=== PATIENT | male | born 1935 | race Caucasian/White ===

== ENCOUNTER → 2018-04-19 | Outpatient (CLI) | payer MEDICARE ==
[~2018-04-19] MED LIST: ALEN10 PO; ASPI325 PO; CEFD300 PO; HYDACE5325 PO; METO25 PO; RXHYD5325 PO
== END | disposition home or self-care (01) ==
LOC: PLD 11:42 → LAB SHORT 11:42
DX: L28.1 Prurigo nodularis (principal); L73.9 Follicular disorder, unspecified
CPT/HCPCS: 88305

== ENCOUNTER → 2018-07-05 | Outpatient (CLI) | payer MEDICARE ==
[2018-07-05 15:46] LABS: Source, Urine Clean Catch
[2018-07-05 15:57] LABS: Bacteria Not Seen /hpf; Red Blood Cells, Urine Rare /hpf (0-2); Squamous Epithelial Cells Not Seen /hpf (Few); White Blood Cells, Urine Not Seen /hpf (0-5); Yeast/Fungi Urine Not Seen /hpf
== END | disposition home or self-care (01) ==
LOC: LAB EV 15:00 → LAB SHORT 15:00
PROVIDERS: Physician Assistant
DX: R31.9 Hematuria, unspecified (principal)
CPT/HCPCS: 81015

== ENCOUNTER 2018-12-16 13:00 | Observation (INO) | payer MEDICARE ==
[~2018-12-16] VITALS: Ht 185.4 cm; Wt 89.9 kg
[2018-12-16 13:34] LABS: BASOPHILS ABSOLUTE AUTO 0.06 K/mm3 (0.00-0.23); BASOPHILS PERCENT AUTO 1 % (0-2); EOSINOPHILS ABSOLUTE AUTO 0.28 K/mm3 (0.00-0.68); EOSINOPHILS PERCENT AUTO 4 % (0-6); Hematocrit 43.8 % (37.0-53.0); Hemoglobin 13.9 g/dL (13.5-17.5); IMMATURE GRAN ABSOLUTE AUTO 0.01 K/mm3 (0.00-0.10); IMMATURE GRAN PERCENT AUTO 0 % (0-1); LYMPHOCYTES ABSOLUTE AUTO 1.82 K/mm3 (0.84-5.20); LYMPHOCYTES PERCENT AUTO 27 % (21-46); MONOCYTES ABSOLUTE AUTO 0.89 K/mm3 (0.16-1.47); MONOCYTES PERCENT AUTO 13 % (4-13); Mean Corpuscular HGB 30.1 pg (26.0-34.0); Mean Corpuscular HGB Conc 31.7 g/dL (31.5-36.5); Mean Corpuscular Volume 95 fL (80-100); Mean Platelet Volume 9.5 fL (9.1-12.4); NEUTROPHILS ABSOLUTE AUTO 3.66 K/mm3 (1.96-9.15); NEUTROPHILS PERCENT AUTO 55 % (41-73); Platelet Count 235 K/mm3 (150-400); RDW Standard Deviation 44.8 fL (35.1-46.3); Red Blood Cell Count 4.62 M/mm3 (4.30-5.90); White Blood Cell Count 6.72 K/mm3 (4.00-11.30)
[2018-12-16 13:51] LABS: Albumin, Blood 3.9 g/dL (3.4-5.0); Albumin/Globulin Ratio 1.2 (0.8-1.8); Bilirubin, Total 0.6 mg/dL (0.1-1.0); Bun/Creatinine Ratio 13.5 (12.0-20.0); Calcium, Blood 8.8 mg/dL (8.5-10.1); Creatinine, Blood 1.41 mg/dL (0.60-1.20); Globulin, Blood 3.2 g/dL (2.2-4.0); Total Protein, Blood 7.1 g/dL (6.4-8.2)
--- NOTE | 2018-12-17 01:39 | NUR ---
12/16/181999 83 Y/O MALE ADMITTED TO 301 PER STRETCHER FROM ER. PT ALERT AND ORIENTED X 3, DENIES PAIN, SOB, NAUSEA, NO NEUROLOGICAL DEFICITS NOTED.
--- NOTE | 2018-12-17 04:21 | NUR ---
SHIFT SUMMARY: 83 Y/O MALE RESTED COMFORTABLY ALL SHIFT. PT DENIES CHEST, NAUSEA, NUMBNESS OR TINGLING TO FACIAL. PT ALERT AND ORIENTED X 3. PT ABLE TO TRANSFER AND AMBULATE TO BATHROOM TO VOID WITH GAIT SLOW AND STEADY. PTS BED LOW POSITION, CALL LIGHT AT SIDE.
[2018-12-17 05:03] LABS: CHOL/HDL RATIO 2.9; Cholesterol 190 mg/dL (50-200); HDL Cholesterol 65 mg/dL (>39); LDL/HDL RATIO 1.6; Low Density Lipoprotein Chol 105 mg/dL (0-110); Triglycerides 102 mg/dL (30-160); Very Low Density Lipoprot Chol 20 mg/dL (6-32)
--- NOTE | 2018-12-17 10:22 | NUR ---
ECHOCARDIOGRAM COMPLETE
--- NOTE | 2018-12-17 14:34 | NUR ---
PATIENT TO DISCHARGE TO HOME. IV REMOVED WITH NO SS OF INFECTION NOTED. NO NEW MEDS TO EDUCATE OR TO FAX OVER. PATIENT INSTRUCTED TO FOLLOW UP WITH PCP. CAME AND PATIENT WAS ESCORTED DOWN TO CAR BY ANUP.
== END 2018-12-17 13:00 | disposition home or self-care (01) ==
LOC: ER 13:00 → MEDS 13:01
PROVIDERS: Emergency Medicine; ADMIT Internal Medicine
DX: G45.9 Transient cerebral ischemic attack, unspecified (principal); J44.9 Chronic obstructive pulmonary disease, unspecified; N18.3 Chronic kidney disease, stage 3 (moderate); Z86.79 Personal history of other diseases of the circulatory system; Z79.82 Long term (current) use of aspirin; Z91.040 Latex allergy status
CPT/HCPCS: 36415; 70450; 70551; 80053; 80061; 85025; 93005; 93010; 93306; 93880; 96372; 99285-25; G0378; J1650

== ENCOUNTER → 2020-08-06 | Outpatient (CLI) | payer MEDICARE | END | disposition home or self-care (01) | LOC: LAB 12:29 → LAB SHORT 12:29 | DX: D48.5 Neoplasm of uncertain behavior of skin (principal) | CPT/HCPCS: 88305; 88312 ==

== ENCOUNTER 2023-02-14 20:46 | Inpatient (IN) | payer MEDICARE ==
[~2023-02-14] VITALS: Ht 185.4 cm; Wt 89.6 kg
[2023-02-14 21:09] LABS: BASOPHILS ABSOLUTE AUTO 0.05 K/mm3 (0.00-0.23); BASOPHILS PERCENT AUTO 1 % (0-2); EOSINOPHILS ABSOLUTE AUTO 0.39 K/mm3 (0.00-0.68); EOSINOPHILS PERCENT AUTO 4 % (0-6); Hematocrit 38.2 % (37.0-53.0); Hemoglobin 12.3 g/dL (13.5-17.5); IMMATURE GRAN ABSOLUTE AUTO 0.02 K/mm3 (0.00-0.10); IMMATURE GRAN PERCENT AUTO 0 % (0-1); LYMPHOCYTES ABSOLUTE AUTO 2.34 K/mm3 (0.84-5.20); LYMPHOCYTES PERCENT AUTO 25 % (21-46); MONOCYTES ABSOLUTE AUTO 1.15 K/mm3 (0.16-1.47); MONOCYTES PERCENT AUTO 12 % (4-13); Mean Corpuscular HGB Conc 32.2 g/dL (31.5-36.5); Mean Corpuscular Volume 93 fL (80-100); Mean Platelet Volume 9.3 fL (9.1-12.4); NEUTROPHILS ABSOLUTE AUTO 5.41 K/mm3 (1.96-9.15); NEUTROPHILS PERCENT AUTO 58 % (41-73); Platelet Count 284 K/mm3 (150-400); RDW Coefficient Variation 13.2 % (11.7-14.2); RDW Standard Deviation 45.2 fL (35.1-46.3); White Blood Cell Count 9.36 K/mm3 (4.00-11.30)
[2023-02-14 21:27] LABS: Albumin, Blood 3.6 g/dL (3.4-5.0); Albumin/Globulin Ratio 1.1 (0.8-1.8); Bilirubin, Total 0.3 mg/dL (0.1-1.0); Bun/Creatinine Ratio 16.1 (12.0-20.0); Calcium, Blood 8.8 mg/dL (8.5-10.1); Creatinine, Blood 1.18 mg/dL (0.60-1.20); Globulin, Blood 3.4 g/dL (2.2-4.0); Potassium, Blood 4.3 mmol/L (3.5-5.5)
[2023-02-15] VITALS (23 sets, daily range): BP systolic 89–143; BP diastolic 56–90
[2023-02-15] MEDS ORDERED: ALBU90OI INH (01:27)
[2023-02-15 03:32] LABS: Source, Urine Clean Catch
[2023-02-15 03:34] LABS: Bilirubin, Urine Neg (Neg); Blood, Urine 1+ (Neg); Glucose Qualitative, Urine Neg (Neg); Ketones, Urine Neg (Neg); Leukocyte Esterase, Urine Neg (Neg); Nitrite, Urine Neg (Neg); Protein, Urine Neg (Neg); Specific Gravity, Urine 1.015 (1.003-1.022); Urobilinogen, Urine NORM (Normal)
[2023-02-15 03:52] LABS: Appearance, Urine Clear (Clear); Color, Urine Yellow (P-Yellow)
[2023-02-15 03:53] LABS: Amorphous Light (0-Heavy); Bacteria Few /hpf; Red Blood Cells, Urine 0-2 /hpf (0-2); Squamous Epithelial Cells Few /hpf (Few); White Blood Cells, Urine 0-2 /hpf (0-5)
--- NOTE | 2023-02-15 05:06 | NUR ---
ER ADMIT LATE ENTRY ER ADMIT. SURGICAL PT. ALERT AND ORIENTED X4. PT HAD 300 ML EMESIS AT 0330. NPO. PT DENIES PAIN. WHEEZING NOTED ON ASSESSMENT. NOTIFIED SEE ORDERS. PT EDUCATED ON RISK OF HAVING IGNITION SOURCES AROUNG OXYGEN. PT DECLINES HAVING IGNITION SOURCE.
[2023-02-15 05:37] LABS: Albumin, Blood 3.6 g/dL (3.4-5.0); Albumin/Globulin Ratio 1.1 (0.8-1.8); Bilirubin, Total 0.5 mg/dL (0.1-1.0); Calcium, Blood 8.8 mg/dL (8.5-10.1); Creatinine, Blood 1.12 mg/dL (0.60-1.20); Globulin, Blood 3.2 g/dL (2.2-4.0); Potassium, Blood 3.5 mmol/L (3.5-5.5); Total Protein, Blood 6.8 g/dL (6.4-8.2)
--- NOTE | 2023-02-15 11:04 | NUR ---
PT HERE FROM [facility]. Patient confirms NPO status and agrees with scheduled surgery. History, Chart, Medications and Allergies reviewed before start of procedure.Pre-Op teaching done. Pt verbalizes understanding.
--- NOTE | 2023-02-15 14:12 | NUR ---
MIDLINE INCISION APEARS TO COVERED WITH EXOFEN CDI
--- NOTE | 2023-02-15 14:25 | NUR ---
ARRIVAL TO SURGICAL UNIT VIA HOSPITAL BED, QUIET BUT ANSWERS ?'s BY NODDING HEAD OR SHAKING HEAD IN A NO FASHION. DECLINES TO OPEN EYES BUT PACU NURSE REPORTS HE OPENED THEM ONCE BY COMMAND IN PACU. ABD SOFT w/ OSTOMY TO MID ABD. MIDLINE INC UNDER UMBILICUS w/ CLEAR DRSG OVER. LUNGS CLEAR 3L NC.
--- NOTE | 2023-02-15 15:10 | NUR ---
TRANSFER NOTE POST SURGERY, PT WAS TRANSFERED TO SURGICAL FLOOR. REPORT GIVEN TO AAKASH GARLAND. PERSONAL BELONGINGS MOVED TO NEW ROOM, IS AT THE BS. PALLIATIVE CARE NOTIFIED OF THE TRANSFER FOR FURTHER CARE.
--- NOTE | 2023-02-15 15:13 | NUR ---
Spoke with Dr Almaguer, discussed case and findings. Pt resting in bed with his eyes closed and on surgical floor. Pt appears comfortable and remains with his eyes closed during brief supportive visit with spouse Meli. Brief review of plan of care. Plan: Advanced Care Planning including goals of care conversation after physician discusses findings. Palliative Care will remain available
[2023-02-16] VITALS (10 sets, daily range): BP systolic 98–146; BP diastolic 60–96
--- NOTE | 2023-02-16 05:43 | NUR ---
SHIFT SUMMARY POD1 COLECTOMY WITH STOMA CREATION. MIDLINE INCISION IS C/D/I, BRUISING BEGINNING TO APPEAR THIS AM. STOMA APPEARS FLUSH WITH SURROUNDING SKIN, NO LARGE PROTRUDING PART NOTED. OUTPUT HAS BEEN LIQUID, BROWN W/ A TINT OF MAROON, AND FOUL. MINIMAL TO NO FLATTUS NOTED. PT NOTED TO BELCH REGULARLY. MEDICATED FOR PAIN WITH IV MEDICATION. PT REPORTS FEELING PAINFUL BUT IS VERY STOIC. 1L OR LR INFUSED T/O THE NIGHT, BP NOTED TO INCREASE BUT NO URINE OUTPUT NOTED. HOSPITALIST NOTIFIED OF THIS, NO FUTHER ORDERS AT THIS TIME. BLADDER SCAN OF 214. PT REPORTS NO URGE TO VOID. PT REMAINED ON O2 T/O THE NIGHT. 1 EPISODE OF WHEEZING NOTED, THIS RESOLVED WITH BREATHING TX. O2 INCREASED FROM 3L TO 4L. VSS. PT TOLLERATING ICE CHIPS W/O N/V. PT SLEPT ON AND OFF T/O THE NIGHT. PLAN FOR DR MAURICIO TO SPEAK TO PT AND FAMILY TODAY ABOUT SURGICAL FINDINGS. NO IGNITION SOURCE NOTED
[2023-02-16 06:25] LABS: BASOPHILS ABSOLUTE AUTO 0.04 K/mm3 (0.00-0.23); BASOPHILS PERCENT AUTO 0 % (0-2); EOSINOPHILS PERCENT AUTO 0 % (0-6); Hematocrit 34.5 % (37.0-53.0); Hemoglobin 10.9 g/dL (13.5-17.5); IMMATURE GRAN ABSOLUTE AUTO 0.06 K/mm3 (0.00-0.10); IMMATURE GRAN PERCENT AUTO 0 % (0-1); LYMPHOCYTES ABSOLUTE AUTO 1.66 K/mm3 (0.84-5.20); LYMPHOCYTES PERCENT AUTO 11 % (21-46); MONOCYTES PERCENT AUTO 13 % (4-13); Mean Corpuscular HGB 30.2 pg (26.0-34.0); Mean Corpuscular HGB Conc 31.6 g/dL (31.5-36.5); Mean Corpuscular Volume 96 fL (80-100); Mean Platelet Volume 9.7 fL (9.1-12.4); NEUTROPHILS ABSOLUTE AUTO 11.03 K/mm3 (1.96-9.15); NEUTROPHILS PERCENT AUTO 75 % (41-73); Platelet Count 303 K/mm3 (150-400); RDW Coefficient Variation 13.3 % (11.7-14.2); RDW Standard Deviation 47.3 fL (35.1-46.3); Red Blood Cell Count 3.61 M/mm3 (4.30-5.90); White Blood Cell Count 14.69 K/mm3 (4.00-11.30)
[2023-02-16 06:46] LABS: Calcium, Blood 8.1 mg/dL (8.5-10.1); Creatinine, Blood 1.68 mg/dL (0.60-1.20); Potassium, Blood 5.4 mmol/L (3.5-5.5)
--- NOTE | 2023-02-16 11:05 | NUR ---
Joint visit with Dr Almaguer this AM. Pt resting in bed and denies pain unless he moves then pain is significant. Pt reports being premedicated before our arrival in order to aid with ability to get up and move. Dr Almaguer provides update of her findings during surgery and discusses prognosis. Therapeutic listening as Pt states having a good life and he will turn 88 years old soon. Pt appears some what stoic during conversation. Continued therapeutic listening as Pt reports being to his spouse Meli for 33 years. He reports spouse has some memory impairment and becomes confused during stressful situations. He reports having 2 sons that and two living sons who live in [place]. Luke Fair appear to be pretty supportive. Pt also has a daughter who lives in [place]. Dr Almaguer receives permission from Pt to contact son Marv to discuss findings and concerns. Staff will attempt to obtain Marv's phone number as Pt does not have it memorized and phone number is at home on wall above his desk. Pt agreeable for this RN to F/U later today when spouse arrives and discuss options. Spoke with Primary RN Susana, AAKASH Dias and discussed case. Plan: Discuss goals of care with Pt and family. Palliative Care will remain available
--- NOTE | 2023-02-16 12:27 | NUR ---
"Spiritual Care Visit | Palliative Care Nurse Request Pt. is awake in bed and welcomes my visit. Pt. is pleasant. This housing property manager had been notified of the Pt. learning of a potential cancer diagnosis. Facilitated a life review. Listen with interest and empathy. Pt. displayed evidence of the realistic possibility of his terminal diagnosis, and demonstrated an accepting posture. Pt. verbalized an expectation of being admitted at the hospital for several days. Established rapport, and considered matters of popeye and belief. Prayed witht Pt. Pt. verbalized gratitude for the spiritual care visit. Will remain available to the pt. and family."
--- NOTE | 2023-02-16 14:40 | NUR ---
PT EDUCATED ON RISK OF IGNITION SOURCES AND DANGER OF SMOKING WHILE USING OXYGEN. PT VERBALIZED UNDERSTANDING. PT DENIES ANY USE OF CIGARETTES
--- NOTE | 2023-02-16 14:49 | NUR ---
Called and spoke with Pt's son Marv prior to F/U visit with Pt. Offered supportive conversation and answered questions. He confirms Dr Almaguer called and discussed findings. He reports ability to come down from [place] soon and assist with care needs. Marv expresses appreciation and reports no concerns at this time. Received call from Pt's Primary RN Susana reporting spouse has arrived. Pt resting in bed with spouse Meli at bedside. Engaged in therapeutic conversation regarding goals of care. Discussed Dr Almaguer's findings with spouse. Discussed options including consulting oncology after pathology results are in, discussed option for hospice services, and option for home health then transitioning to hospice. Educated on hospice philosophy and answered questions. Offered theraputic listening. Pt's daughter calls his room phone and Pt engages in conversation on the phone. Continued conversation with spouse. Spouse verbalizes understanding. Ended visit as Pt remains on the phone. Spoke with Pt's Primary RN Susana and relayed conversation that took place. Palliative Care will remain available for therapeutic and supportive visits.
--- NOTE | 2023-02-16 16:46 | NUR ---
SUMMARY: PT IS POD1 LOOP COLOSTOMY. A/O, VSS. PAIN APPEARS TO BE WELL MANAGED WITH 1 NARCO, PT REPORTS MORE PAIN WITH MOVEMENT. PT AMBULATED IN ROOM AND ABLE TO VOID IN TOLIET. STOMA AND ML INCISION WNL. OSTOMY BAG HAS LIQ BROWN STOOL AND FLATUS. PT TOLERATING CLEAR LIQ DIET, NO N/V. STACIE FROM PALLIATIVE CARE IN ROOM WITH DR. MAURICIO THIS MORNING TO DISCUSS CARE AFTER DISCHARGE. TENITIVE PLAN IS HOME WITH AND FOR HOSPICE CARE TO FOLLOW UP. NO ACUTE SAFETY CONCERNS.
[2023-02-16 23:16] LABS: Base Excess Venous 2.1 mmol/L; Bicarbonate Venous 26.5 mmol/L (24.0-30.0); PCO2 Venous 33.1 mmHg (38-42); pH Blood Venous 7.49 (7.34-7.37)
--- NOTE | 2023-02-16 23:35 | NUR ---
HOSPITALIST HOSPITALIST NOTIFIED D/T PT'S INCREASE RR AND WOB, HYPOTENTION, AND ELEVATED TEMPERATURE. ORDER FOR TYLENOL, FLUID BOLUS, 12 LEAD EKG, AND TELE. 12 LEAD REPORTED AFIB WITH RVR AND A RATE OF 155. TELE THEN PLACED AND REPORTED RATE OF 155-165. HOSPITALIST NOTIFIED, OBTAINED ORDER FOR LOPRESSOR AND LABS. LOPRESSOR GIVEN AND HR NOTED TO DECREASE TO AFIB 120'S. PT HAS REMAINED ASYMPTOMATIC T/O THIS EVENT. PT REPORTED HE HAS NOT BEEN TAKING HIS PO BETA HALINA SINCE ADMISSION. AWAITING LAB RESULTS AND FURTHER ORDERS AT THIS TIME
[2023-02-17] VITALS (12 sets, daily range): BP systolic 93–141; BP diastolic 57–76
[2023-02-17 00:21] LABS: BASOPHILS ABSOLUTE AUTO 0.02 K/mm3 (0.00-0.23); BASOPHILS PERCENT AUTO 0 % (0-2); EOSINOPHILS ABSOLUTE AUTO 0.01 K/mm3 (0.00-0.68); EOSINOPHILS PERCENT AUTO 0 % (0-6); Hematocrit 29.1 % (37.0-53.0); Hemoglobin 9.4 g/dL (13.5-17.5); IMMATURE GRAN ABSOLUTE AUTO 0.06 K/mm3 (0.00-0.10); IMMATURE GRAN PERCENT AUTO 0 % (0-1); LYMPHOCYTES ABSOLUTE AUTO 1.47 K/mm3 (0.84-5.20); LYMPHOCYTES PERCENT AUTO 11 % (21-46); MONOCYTES ABSOLUTE AUTO 1.76 K/mm3 (0.16-1.47); MONOCYTES PERCENT AUTO 13 % (4-13); Mean Corpuscular HGB 30.1 pg (26.0-34.0); Mean Corpuscular HGB Conc 32.3 g/dL (31.5-36.5); Mean Corpuscular Volume 93 fL (80-100); Mean Platelet Volume 9.7 fL (9.1-12.4); NEUTROPHILS ABSOLUTE AUTO 10.25 K/mm3 (1.96-9.15); NEUTROPHILS PERCENT AUTO 76 % (41-73); Platelet Count 241 K/mm3 (150-400); RDW Coefficient Variation 13.3 % (11.7-14.2); RDW Standard Deviation 45.9 fL (35.1-46.3); Red Blood Cell Count 3.12 M/mm3 (4.30-5.90); White Blood Cell Count 13.57 K/mm3 (4.00-11.30)
[2023-02-17 00:37] LABS: Bun/Creatinine Ratio 21.5 (12.0-20.0); Calcium, Blood 7.6 mg/dL (8.5-10.1); Creatinine, Blood 1.35 mg/dL (0.60-1.20); Potassium, Blood 4.5 mmol/L (3.5-5.5)
--- NOTE | 2023-02-17 01:00 | NUR ---
TRANSFER HOSPITALIST NOTIFIED OF PTS PERSISTANT HYPOTENTION AND TACHYCARDIA, RECIEVED ORDERS TO TRANSFER PT. REPORT GIVEN TO PCU NURSE. TELE SHORTLY CALLED AFTER THIS TO NOTIFY THAT THE PTS HR WAS 190 AFIB WITH RVR. CHARGE NURSE AND I WENT INTO THE PATIENTS ROOM TO IMMEDIATELY TRANSFER PT TO PCU. THE PATIENT WAS BEING WHEELED DOWN THE [place], TELE CALLED AGAIN TO INFORM ME THAT THE PATIENT HAD CONVERTED TO SR @90. THE PATIENT WAS THEN TAKEN TO PCU 5 WITH NO FURTHER INCIDENTS.
[2023-02-17 01:55] LABS: Source, Urine Clean Catch
[2023-02-17 01:59] LABS: Appearance, Urine Clear (Clear); Bilirubin, Urine Neg (Neg); Blood, Urine 4+ (Neg); Color, Urine Yellow (P-Yellow); Glucose Qualitative, Urine Neg (Neg); Ketones, Urine Neg (Neg); Leukocyte Esterase, Urine Neg (Neg); Nitrite, Urine Neg (Neg); Protein, Urine 2+ (Neg); Urobilinogen, Urine NORM (Normal)
[2023-02-17 02:08] LABS: Bacteria Few /hpf; Hyaline Casts 0-2 /lpf (0-2); Squamous Epithelial Cells Not Seen /hpf (Few)
--- NOTE | 2023-02-17 02:27 | NUR ---
ASSUMPTION OF CARE/TRANSFER NOTE THIS RN RECEIVED REPORT VIA PHONE FROM SANJEEV FINN ON SURGICAL FLOOR. PT TRANSFERRED TO PCU 5 AT 0055. PT CONVERTED FROM AFIB RVR TO SR PROIR TO ARRIVAL. HR 90'S AT THIS TIME. PT DENIES CHEST PAIN/PRESSURE AND SOB. BP STABLE WITH SBP 110'S. AFEBRILE. ON 4L VIA NC WITH SPO2 >92%. PT ALERT AND ORIENTED X4. MD HOLDEN TO BEDSIDE TO EVALUATE PT. DISCUSSED CODE STATUS WITH PT. PT VERBALIZED WISHES TO BE A DNR AFTER SPEAKING TO PROVIDER WITH THIS RN IN ROOM WELL. PT CHANGED TO DNR CODE STATUS; PURPLE WRIST BANDS IN PLACE. PT VERBALIZED UNDERSTANDING. WITH ORDERS FOR ECHO TODAY, TO CONTINUE LR AT CURRENT RATE, AND BLADDER SCAN PT. THIS RN SCANNED BLADDER, NOTING 510MLS. STRAIGHT CATH PERFORMED PER PROTOCOL. 600MLS OF URINE NOTED. UA SENT TO LAB. PT DENIES ALL PAIN AT THIS TIME. NO IGNITION SOURCE NOTED. PT VERBALIZED UNDERSTANDING FIRE/IGNITION SAFETY EDUCATION. BED IN LOWEST POSITION AND CALL LIGHT WITHIN REACH.
--- NOTE | 2023-02-17 04:52 | NUR ---
SHIFT SUMMARY NO ACUTE CHANGES SINCE ARRIVAL TO PCU. VITALS REMAIN STABLE. SR ON MONITOR WITH HR 80-90'S. SEE PREVIOUS NOTE. PT CONTINUES TO BE ON 4L VIA NC. SMALL LIQUID BROWN OUTPUT NOTED IN COLOSTOMY BAG. A&O X4. PT STATED THAT HE WISHES TO CALL FAMILY IN THE AM ABOUT STATUS CHANGE, STATING HE "DIDN'T WANT TO WAKE THEM". PT DENIES ALL PAIN AT THIS TIME. BED IN LOWEST POSITION AND CALL LIGHT WITHIN REACH. THIS RN WILL CONTINUE TO MONITOR UNTIL SHIFT CHANGE AT 0700.
--- NOTE | 2023-02-17 09:48 | NUR ---
CARE ASSUMPTION This RN assumed care at 0700. vital signs stable. tele sr. patient is alert and oriented x4. perrla. patient reports no pain or chest pain/pressure. patient reports shortness of breath wit exertion. 4l nc spo2 >95%. patient colostomy drianing brown liquid stool, appears to be retracted. md grubbs by to see patient this am and discussed plan of care. site is clean dry and intact, swelling at site. patient abd is firm, severly distended and hypoactive. see shift assessment for further detials. plan of care is up to date.
--- NOTE | 2023-02-17 10:53 | NUR ---
Supportive visit this AM. Pt resting in bed and denies pain at this time. He does report pain when taking a deep breath. Pt reports feeling better. Reviewed plan of care. Offered supportive visit and therapeutic listening. Spoke with Primary RN Fauzia and discussed case. Palliative Care will remain available
--- NOTE | 2023-02-17 16:48 | NUR ---
REPORT TO CONSTRUCTION ENGINEERING MANAGER/TRANSFER this rn gave report to operating room surgical technologist bartolome. patient notfied of move to new room. patient left with all belongings and in no distress. no acute changes this shift.
--- NOTE | 2023-02-17 17:15 | NUR ---
TRANSFER PT TRANSFERED FROM PCU TO [facility][note 3]. PT DENIES PAIN OR DISCOMFORT. OSTOMY APPLIANCE IN PLACE, LIQUID BROWN STOOL IN BAG. PT DENIES ANY NEEDS, CALLS APPROPRIATLY. AA0X4. IV ABX INFUSING ON TRANSFER. PT SITTING UP WATCHING TV. DENIES CHEST PAIN ORSOB.
[2023-02-18] VITALS (11 sets, daily range): BP systolic 90–120; BP diastolic 54–87
[2023-02-18 05:02] LABS: BASOPHILS ABSOLUTE AUTO 0.01 K/mm3 (0.00-0.23); BASOPHILS PERCENT AUTO 0 % (0-2); EOSINOPHILS ABSOLUTE AUTO 0.27 K/mm3 (0.00-0.68); EOSINOPHILS PERCENT AUTO 3 % (0-6); Hematocrit 28.2 % (37.0-53.0); Hemoglobin 9.2 g/dL (13.5-17.5); IMMATURE GRAN ABSOLUTE AUTO 0.03 K/mm3 (0.00-0.10); IMMATURE GRAN PERCENT AUTO 0 % (0-1); LYMPHOCYTES ABSOLUTE AUTO 1.41 K/mm3 (0.84-5.20); LYMPHOCYTES PERCENT AUTO 17 % (21-46); MONOCYTES ABSOLUTE AUTO 1.25 K/mm3 (0.16-1.47); MONOCYTES PERCENT AUTO 15 % (4-13); Mean Corpuscular HGB 30.4 pg (26.0-34.0); Mean Corpuscular HGB Conc 32.6 g/dL (31.5-36.5); Mean Corpuscular Volume 93 fL (80-100); Mean Platelet Volume 9.8 fL (9.1-12.4); NEUTROPHILS ABSOLUTE AUTO 5.31 K/mm3 (1.96-9.15); NEUTROPHILS PERCENT AUTO 64 % (41-73); Platelet Count 228 K/mm3 (150-400); RDW Coefficient Variation 13.2 % (11.7-14.2); RDW Standard Deviation 44.9 fL (35.1-46.3); Red Blood Cell Count 3.03 M/mm3 (4.30-5.90); White Blood Cell Count 8.28 K/mm3 (4.00-11.30)
--- NOTE | 2023-02-18 05:07 | NUR ---
CHANGE IN PATIENT STATUS: PATIENT CONVERTED TO A.FLUTTER 130-140'S, LOPRESSOR GIVEN PER SEP. NO CHANGE TO HEART RATE/RHYTHM, MD AWARE, ORDERS RECEIVED FOR CARDIZEM IV PUSH, HEART RATE CAME DOWN TO 100-120'S BUT WENT BACK UP TO 140'S, BP 90/60-105/65. CALLED MD AGAIN, ORDERS FOR TRANSFER AND CARDIZEM DRIP PLACED.
[2023-02-18 05:12] LABS: Bun/Creatinine Ratio 19.5 (12.0-20.0); Calcium, Blood 8.1 mg/dL (8.5-10.1); Creatinine, Blood 1.13 mg/dL (0.60-1.20); Potassium, Blood 4.2 mmol/L (3.5-5.5)
--- NOTE | 2023-02-18 06:51 | NUR ---
SHIFT SUMMARY PT ARRIVED TO ROOM IN NO DISTRESS. PT IS ON CARDIZEM FOR AFIB W/ RVR. PT HAS BEEN SR @80-90'S SINCE ARRIVING TO ROOM. PT DENIES CX PAIN OR SOB. PT COLOSTOMY IS PRODUCING BROWN STOOL AND ABD INCISION IS C/D/I. PT HAS NO COMPLAINTS. CALL LIGHT IN REACH.
--- NOTE | 2023-02-18 09:29 | NUR ---
UPDATE: MARGRET PLACED ON STANDBY @6523
--- NOTE | 2023-02-18 17:03 | NUR ---
SHIFT SUMMARY; PT ALERT AND ORIENTED X4, ABLE TO FOLLOW COMMANDS AND MAKE NEEDS KNOWN. COOPERATIVE WITH CARE. BP STABLE, HR REMAINS SR 80'S, PT WITH EPISODE OF SVT EARLIER IN THE SHIFT, ASYMPTOMATIC. AFEBRILE, SATS >92% ON 1L NC. RESPIRATIONS EVEN AND UNLABORED AT REST, DYSPENIC WITH ACTIVITY. PULSES STRONG AND EQUAL THROUGHOUT. PT WITH NEW COLOSTOMY, STOMA PINK-RED AND MOIST, ADEQUATE OUTPUT. DILT PLACED ON STANDBY THIS MORNING, SEE EMAR. ORDERS FOR INCREASE METOPROLOL, START IN AM. PT DENIES PAIN/NAUSEA/VOMITING THROUGOUT THE DAY. FAMILY AT BEDSIDE THIS AFTERNOON, UPDATED ON PT CARE. PT ABLE TO REPOS IND IN BED. BED IN LOW, CALL LIGHT IN REACH, WILL REPORT TO ONCOMING RN.
--- NOTE | 2023-02-18 21:33 | NUR ---
ASSUMED PT CARE FORM MARIA DE JESUS FINN ON . A&OX4. DENIES ANY CHEST PAIN/PRESSURE. HR SR IN 80'S AT THIS TIME. DENIES FEELINGS OF SOB. O2 SATS > 92% ON 1 LPM. COLOSOMY APPLIANCE IS C/D/I, NO LEAKAGE NOTED. PUTTING OUT LIQUID BROWN STOOL. PT ASSISTED WITH EMPTYING COLOSTOMY BAG. PT IS INTERACTIVE AND SEEKING TO UNDERSTAND DIAGNOSIS. LEFT SITTING UP IN BED. CALL LIGHT IN REACH. BED IN LOW POSITION.
[2023-02-19] VITALS (7 sets, daily range): BP systolic 94–141; BP diastolic 48–76
--- NOTE | 2023-02-19 05:58 | NUR ---
SHIFT SUMMARY: NO ACUTE CHANGES NOTED THROUGHOUT SHIFT. SLEEPING INTERMITTENTLY. VITAL SIGNS STABLE. HR HAS REMAINED IN SR THROUGHOUT ALL OF SHIFT. PT ASSISTING WITH BURPING OF COLOSOMY BAG. CALL LIGHT IN REACH. BED IN LOW POSITION.
[2023-02-19 06:11] LABS: BASOPHILS ABSOLUTE AUTO 0.03 K/mm3 (0.00-0.23); BASOPHILS PERCENT AUTO 0 % (0-2); EOSINOPHILS ABSOLUTE AUTO 0.59 K/mm3 (0.00-0.68); EOSINOPHILS PERCENT AUTO 7 % (0-6); Hemoglobin 8.9 g/dL (13.5-17.5); IMMATURE GRAN ABSOLUTE AUTO 0.03 K/mm3 (0.00-0.10); IMMATURE GRAN PERCENT AUTO 0 % (0-1); LYMPHOCYTES ABSOLUTE AUTO 1.49 K/mm3 (0.84-5.20); LYMPHOCYTES PERCENT AUTO 19 % (21-46); MONOCYTES ABSOLUTE AUTO 1.24 K/mm3 (0.16-1.47); MONOCYTES PERCENT AUTO 16 % (4-13); Mean Corpuscular HGB 30.8 pg (26.0-34.0); Mean Corpuscular Volume 93 fL (80-100); Mean Platelet Volume 9.7 fL (9.1-12.4); NEUTROPHILS ABSOLUTE AUTO 4.61 K/mm3 (1.96-9.15); NEUTROPHILS PERCENT AUTO 58 % (41-73); Platelet Count 241 K/mm3 (150-400); RDW Coefficient Variation 12.9 % (11.7-14.2); RDW Standard Deviation 44.6 fL (35.1-46.3); Red Blood Cell Count 2.89 M/mm3 (4.30-5.90); White Blood Cell Count 7.99 K/mm3 (4.00-11.30)
[2023-02-19 06:59] LABS: Albumin, Blood 2.5 g/dL (3.4-5.0); Albumin/Globulin Ratio 0.8 (0.8-1.8); Bilirubin, Total 0.5 mg/dL (0.1-1.0); Bun/Creatinine Ratio 21.1 (12.0-20.0); Calcium, Blood 8.2 mg/dL (8.5-10.1); Creatinine, Blood 1.14 mg/dL (0.60-1.20); Magnesium, Blood 1.8 mg/dL (1.6-2.4); Phosphorus, Blood 2.7 mg/dL (2.5-4.9); Potassium, Blood 3.8 mmol/L (3.5-5.5); Total Protein, Blood 5.5 g/dL (6.4-8.2)
--- NOTE | 2023-02-19 16:58 | NUR ---
SHIFT SUMMARY: PT REMAINS ALERT AND ORIENTED X4, BP STABLE, HR REMAINS SR 70'S, PT DENIES CP/PRESSURE, AFEBRILE, SATS >92% ON ROOM AIR. PT POST OP DAY 2 FOR COLOSTOMY. OSTOMY PINK AND MOIST. DRAINING LIQUID BROWN STOOL. OSTOMY EDUCATION PROVIDED THIS SHIFT. IND WITH URINAL AT BEDSIDE. PT TOLERATED FULL LIQUID/SOFT FOODS TODAY. DENIES NAUSEA/VOMITING. SBA TO AND FROM BATHROOM. MD AT BEDSIDE THIS AM, PLAN FOR ONCOLOGY TO SEE PT EARLY NEXT WEEK. BED IN LOW, CALL LIGHT IN REACH, WILL REPORT TO ONCOMING RN.
[2023-02-20 04:45] VITALS: BP 131/78
[2023-02-20 05:34] LABS: BASOPHILS ABSOLUTE AUTO 0.03 K/mm3 (0.00-0.23); BASOPHILS PERCENT AUTO 0 % (0-2); EOSINOPHILS ABSOLUTE AUTO 0.47 K/mm3 (0.00-0.68); EOSINOPHILS PERCENT AUTO 6 % (0-6); Hematocrit 27.3 % (37.0-53.0); IMMATURE GRAN ABSOLUTE AUTO 0.04 K/mm3 (0.00-0.10); IMMATURE GRAN PERCENT AUTO 1 % (0-1); LYMPHOCYTES ABSOLUTE AUTO 1.61 K/mm3 (0.84-5.20); LYMPHOCYTES PERCENT AUTO 21 % (21-46); MONOCYTES ABSOLUTE AUTO 1.15 K/mm3 (0.16-1.47); MONOCYTES PERCENT AUTO 15 % (4-13); Mean Corpuscular HGB 30.3 pg (26.0-34.0); Mean Corpuscular Volume 92 fL (80-100); Mean Platelet Volume 8.5 fL (9.1-12.4); NEUTROPHILS PERCENT AUTO 57 % (41-73); Platelet Count 251 K/mm3 (150-400); Red Blood Cell Count 2.97 M/mm3 (4.30-5.90)
[2023-02-20 05:55] LABS: Bun/Creatinine Ratio 20.8 (12.0-20.0); Calcium, Blood 8.2 mg/dL (8.5-10.1); Creatinine, Blood 1.06 mg/dL (0.60-1.20); Potassium, Blood 3.8 mmol/L (3.5-5.5)
--- NOTE | 2023-02-20 05:59 | NUR ---
End of shift. Pt has only slept for a few hours at the begining of this shift. Pt denies any pain or discomfort. Vitals stable. No runs of afib overnight. Pt is able to make needs known, call light is within reach. Pt given education on fire saftey. Denies any source of ignition. Pt verbalizes understanding of risk.
[2023-02-20 07:22] VITALS: BP 108/72
[2023-02-20 16:49] VITALS: BP 157/57
--- NOTE | 2023-02-20 17:16 | NUR ---
SHIFT SUMMARY: PT REMAINS ALERT AND ORIENTED X4, ABLE TO FOLLOW COMMANDS AND MAKE NEEDS KNOWN. COOPERATIVE WITH CARE. BP AND HR STABLE, AFEBRILE, SATS >93% ON ROOM AIR, AFEBRILE. PT WITH SIGNIFICANT BRUISING ON ABDOMEN, SURGEON AWARE. PT IND IN ROOM, ABLE TO AMBULATE TO AND FROM BATHROOM. PLAN FOR ONCOLOGIST CONSULT IN AM. PT NOW SURGICAL STATUS WITH TELE. BED IN LOW, CALL LIGHT IN REACH, WILL REPORT TO ONCOMING RN.
[2023-02-20 20:05] VITALS: BP 127/59
[2023-02-20 23:22] VITALS: BP 110/68
[2023-02-21 03:41] VITALS: BP 128/74
[2023-02-21 03:53] LABS: BASOPHILS ABSOLUTE AUTO 0.03 K/mm3 (0.00-0.23); BASOPHILS PERCENT AUTO 0 % (0-2); EOSINOPHILS ABSOLUTE AUTO 0.51 K/mm3 (0.00-0.68); EOSINOPHILS PERCENT AUTO 6 % (0-6); Hematocrit 30.7 % (37.0-53.0); IMMATURE GRAN ABSOLUTE AUTO 0.04 K/mm3 (0.00-0.10); IMMATURE GRAN PERCENT AUTO 0 % (0-1); LYMPHOCYTES ABSOLUTE AUTO 2.02 K/mm3 (0.84-5.20); LYMPHOCYTES PERCENT AUTO 22 % (21-46); MONOCYTES ABSOLUTE AUTO 1.17 K/mm3 (0.16-1.47); MONOCYTES PERCENT AUTO 13 % (4-13); Mean Corpuscular HGB 29.7 pg (26.0-34.0); Mean Corpuscular HGB Conc 32.6 g/dL (31.5-36.5); Mean Corpuscular Volume 91 fL (80-100); Mean Platelet Volume 9.1 fL (9.1-12.4); NEUTROPHILS ABSOLUTE AUTO 5.57 K/mm3 (1.96-9.15); NEUTROPHILS PERCENT AUTO 60 % (41-73); Platelet Count 328 K/mm3 (150-400); RDW Coefficient Variation 13.1 % (11.7-14.2); RDW Standard Deviation 43.1 fL (35.1-46.3); Red Blood Cell Count 3.37 M/mm3 (4.30-5.90); White Blood Cell Count 9.34 K/mm3 (4.00-11.30)
[2023-02-21 04:11] LABS: Bun/Creatinine Ratio 20.4 (12.0-20.0); Calcium, Blood 8.7 mg/dL (8.5-10.1); Creatinine, Blood 1.08 mg/dL (0.60-1.20)
--- NOTE | 2023-02-21 06:06 | NUR ---
End of shift note. Pt slept better this shift. Remained NSR all shift. VSS. Ostomy continues to have good output. Brusing to groin/right side stable. Pt is able to make needs known, call light is within reach.
[2023-02-21 08:17] VITALS: BP 117/70
[2023-02-21 12:27] VITALS: BP 100/65
--- NOTE | 2023-02-21 12:57 | NUR ---
RN/ DAY SHIFT SUMMARY MORNING REPORT RECIEVED DURING BEDSIDE GREETINGS AND ASSESSMENT. THE PATIENT IS IN GOOD SPIRITS AND DEMONSTRATES INDEPENDENCE WITH TOILETING AND ADL'S. THE ASSESSMENT AND MEDICATIONS WERE COMPLETED WITH NO COMPLICATIONS. THE PATIENT IS TO TRANSFER TO SURGICAL FLOOR WITH REPORT GIVEN TO ASSUMING NURSE. CONTINUE TO MONITOR.
--- NOTE | 2023-02-21 13:17 | NUR ---
ARRIVAL FROM PCU. PT ARRIVED FROM PCU VIA WHEELCHAIR. BELONGINGS IN HAND. PT ABLE TO STAND AND TRANSFER TO BED. PT DENIES PAIN OR SOB. WAS LAUGHING AND MAKING JOKES. ASKING SOME QUESTIONS ABOUT HIS COLOSTOMY, PLAN WILL BE TO CONTINUE OSTOMY EDUCATION WITH PATIENT. CALL LIGHT PROVIDED.
[2023-02-21 14:06] VITALS: BP 121/65
[2023-02-21 20:07] VITALS: BP 121/67
[2023-02-22 03:17] VITALS: BP 111/62
[2023-02-22 04:43] LABS: BASOPHILS ABSOLUTE AUTO 0.03 K/mm3 (0.00-0.23); BASOPHILS PERCENT AUTO 0 % (0-2); EOSINOPHILS ABSOLUTE AUTO 0.61 K/mm3 (0.00-0.68); EOSINOPHILS PERCENT AUTO 6 % (0-6); Hemoglobin 9.9 g/dL (13.5-17.5); IMMATURE GRAN ABSOLUTE AUTO 0.07 K/mm3 (0.00-0.10); IMMATURE GRAN PERCENT AUTO 1 % (0-1); LYMPHOCYTES ABSOLUTE AUTO 2.13 K/mm3 (0.84-5.20); LYMPHOCYTES PERCENT AUTO 22 % (21-46); MONOCYTES ABSOLUTE AUTO 1.17 K/mm3 (0.16-1.47); MONOCYTES PERCENT AUTO 12 % (4-13); Mean Corpuscular HGB 30.1 pg (26.0-34.0); Mean Corpuscular Volume 91 fL (80-100); Mean Platelet Volume 9.2 fL (9.1-12.4); NEUTROPHILS ABSOLUTE AUTO 5.84 K/mm3 (1.96-9.15); NEUTROPHILS PERCENT AUTO 59 % (41-73); Platelet Count 356 K/mm3 (150-400); RDW Coefficient Variation 13.3 % (11.7-14.2); RDW Standard Deviation 43.7 fL (35.1-46.3); Red Blood Cell Count 3.29 M/mm3 (4.30-5.90); White Blood Cell Count 9.85 K/mm3 (4.00-11.30)
[2023-02-22 05:17] LABS: Magnesium, Blood 1.8 mg/dL (1.6-2.4)
[2023-02-22 05:18] LABS: Albumin, Blood 3.1 g/dL (3.4-5.0); Albumin/Globulin Ratio 0.9 (0.8-1.8); Bilirubin, Total 0.8 mg/dL (0.1-1.0); Bun/Creatinine Ratio 23.6 (12.0-20.0); Calcium, Blood 8.5 mg/dL (8.5-10.1); Creatinine, Blood 1.1 mg/dL (0.60-1.20); Globulin, Blood 3.4 g/dL (2.2-4.0); Phosphorus, Blood 3.6 mg/dL (2.5-4.9); Potassium, Blood 3.7 mmol/L (3.5-5.5); Total Protein, Blood 6.5 g/dL (6.4-8.2)
[2023-02-22 07:45] VITALS: BP 125/64
--- NOTE | 2023-02-22 11:14 | NUR ---
Brief supportive visit this AM. Pt resting in bed upon arrival. Pt denies pain at this time but reports pain in the abdomen when he coughs. He reports coughing up small amounts of blood on occasion. Pt reports potential D/C plan for home tomorrow. Pt reports oncology has not visited him yet. Continued supportive visit. Palliative Care will remain available
--- NOTE | 2023-02-22 11:44 | NUR ---
Spiritual Care Visit. Pt. is awake in bed and welcomes my visit. Pt. is pleasant and displays evidence of being alert and engaging. Facilitated a life review and established rapport. Pt. verbalized an expectation of being discharged tomorrow. Normalized the Pt. experience and gave pastoral correctional counselor. Pt. had an incoming phone call from family so he verbalized gratitude for the spiritual care visit.
--- NOTE | 2023-02-22 16:02 | NUR ---
SHIFT SUMMARY POD 7 LOOP TRANSVERSE COLECTOMY PT HAS BEEN BURPING OSTOMY INDEPENDENTLY AND WORKING ON LEARNING HOW TO EMPTY. PASSING STICKY STOOL FROM STOMA. LARGE AMOUNTS. PT CONTINUES TO DENY PAIN, HE HAS BEEN INDEPENDENTLY AMBULATING IN ROOM AND THE HALLWAYS, NO WEAKNESS NOTED WITH AMBULATION. MIDLINE INCISIONS CDI. DENIES SOB. PT MET WITH ONCOLOGY TODAY AND ELECTED FOR HOME WITH HOSPICE AT THIS TIME. HOSPITALIST AWARE. NOTIFIED PALLIATIVE CARE. PT REMAINS POSITIVE AND UNDERSTANDING OF DIAGNOSES AND WAS HAPPY TO HEAR FROM THE ONCOLOGIST.
[2023-02-22 16:19] VITALS: BP 112/67
--- NOTE | 2023-02-22 16:34 | NUR ---
PT EMPTIED OSTOMY INDEPENDETLY WITH GUIDANCE FROM RN. PT REPORTS THAT HE FEELS CONFIDENT IN HIS ABILITY TO DO THIS ON HIS OWN ONCE HOME.
--- NOTE | 2023-02-22 16:49 | NUR ---
Received call from Pt's Primary RN Campbell reporting Oncologist came and spoke with Pt. Recommendations are hospice. Pt resting in bed upon arrival. Offered therapeutic listening as Pt reports conversation with oncologist. He reports he would like to go home with hospice services. Discussed hospice agencies to choose from with Pt requesting [facility]. Received verbal permission from Pt for this RN to call his and his son regarding plan for hospice. Called and spoke with both Nany and Aliya at [facility]. They report they can assist Pt with ostomy bag until Pt is comfortable on his own. They report they can admit Pt onto services tomorrow 02/23/23. They are requesting caremanagement to fax hospice referral package tomorrow morning. Called and spoke with Pt's spouse Meli. Relayed plan for hospice services. Meli appears to be in agreement. Called and spoke with Pt' son Og. Relayed plan for hospice services and answered questions. Og reports being in agreement with plan as well. Spoke with Dr Santiago and discussed case. Palliative Care will remain available.
[2023-02-22 20:58] VITALS: BP 124/55
--- NOTE | 2023-02-23 04:33 | NUR ---
SHIFT SUMMARY POD8 COLECTOMY WITH STOMA CREATION. MIDLINE INCISION IS C/D/I. BRUISING NOTED. OSTOMY REMAINS C/D/I. PT WAS ABLE TO BURP APPLIANCE T/O THE NIGHT. DID NOT REQUIRE EMPTYING. PT VOIDING W/O DIFFICULTY. TOLLERATING PO INTAKE W/O N/V. PT AMBULATING INDEPENDENTLY. AWAITING D/C HOME ON HOSPICE TODAY. NO IGNITION SOURCE NOTED
[2023-02-23 04:51] VITALS: BP 130/69
[2023-02-23 07:49] VITALS: BP 142/81
[2023-02-23] MEDS ORDERED: ACET500 PO (11:19)
[2023-02-23] MEDS ORDERED: METO50ER PO (11:24)
--- NOTE | 2023-02-23 12:20 | NUR ---
DISCHARGE: PACKET PRINTED AND PT EDUCATED. PT GIVEN EXTRA SUPPLIES FOR OSTOMY. HOME HEALTH SCHEDULED TO SEE PT TODAY. PT REPORTS THAT HE PULLED OUT OWN IV AT L WRIST. SITE WNL, NO BLEEDING. PT DENIED NEED FOR WHEELCHAIR OUT AND WALKED OFF UNIT WITH SON AT 1200.
== END 2023-02-23 12:12 | disposition hospice, home (50) | DRG 329 ==
LOC: ER 20:46 → MEDS 20:47 → PCU 20:47 → ER 20:47 → SURS 20:47 → MEDS 02-15 01:57 → SURS 02-15 14:25 → MEDS 02-15 14:25 → PCU 02-17 00:55 → SURS 02-17 00:55 → PCU 02-17 13:56 → SURS 02-17 17:14 → PCU 02-18 04:58 → SURS 02-18 04:58 → PCU 02-19 17:58 → SURS 02-21 13:12
PROVIDERS: Family Medicine; Hospitalist; Internal Medicine; Nurse Practitioner Acute Care; Student in an Organized Health Care Education/Training Program; Surgery; ADMIT Internal Medicine
PROC: 0DBW0ZX Excision of Peritoneum, Open Approach, Diagnostic (ICD-10-PCS; 2023-02-15)
PROC: 0DBU0ZX Excision of Omentum, Open Approach, Diagnostic (ICD-10-PCS; 2023-02-15)
PROC: 0DBU0ZZ Excision of Omentum, Open Approach (ICD-10-PCS; principal; 2023-02-15 11:30)
PROC: 0D1L0Z4 Bypass Transverse Colon to Cutaneous, Open Approach (ICD-10-PCS; 2023-02-15 11:30)
DX: C18.7 Malignant neoplasm of sigmoid colon (principal); J69.0 Pneumonitis due to inhalation of food and vomit; J96.01 Acute respiratory failure with hypoxia; K56.699 Other intestinal obstruction unspecified as to partial versus complete obstruction; C78.6 Secondary malignant neoplasm of retroperitoneum and peritoneum; J44.0 Chronic obstructive pulmonary disease with (acute) lower respiratory infection; J98.11 Atelectasis; Q43.8 Other specified congenital malformations of intestine; Z51.5 Encounter for palliative care; N18.30 Chronic kidney disease, stage 3 unspecified; D50.9 Iron deficiency anemia, unspecified; D63.1 Anemia in chronic kidney disease; I48.0 Paroxysmal atrial fibrillation; K59.00 Constipation, unspecified; Z98.890 Other specified postprocedural states; Z87.891 Personal history of nicotine dependence; Z93.3 Colostomy status
CPT/HCPCS: 36415; 71045; 74022; 74177; 80048; 80053; 81001; 82803; 83605; 83690; 83735; 83880; 84100; 84134; 84145; 85025; 87040; 88305; 88331; 88341; 88342; 93005; 93010; 93306; 94640; 94664; 94760; 94762; 97110; 97112; 97116; 97162; 97165; 97530; 99285-25; A9270; J0456; J0690; J0696; J1170; J1644; J2371; J2405; J2704; J3010; J7040; J7050; J7120; Q9967